=== PATIENT | male | born 1990 | race Caucasian/White ===

== ENCOUNTER 2016-12-03 03:03 | Emergency (ER) | payer BC, OTHER ==
[~2016-12-03] VITALS: Ht 175.3 cm; Wt 124.7 kg
--- NOTE | ~2016-12-03 | CT2 ---
[facility] A Service of [facility] RADIOLOGY TEXT RESULTS PATIENT: GABE YOON LOCATION: JOSE : [birth year] UNIT #: [id number] AGE: [address]: Keshawn Cantu MD SEX: M ORDER DR: [id number] [facility]. [place], [place] [address] [id number] MR#: [id number] Acc #: [id number] NAME: GABE YOON. : 1990 SEX: M STUDY DATE/TIME: 12/03/2016 7:50 UNIT: JOSE ROOM: STUDY DESCRIPTION: CT Abd and Pelv W Cont Attending Physician: Keshawn Cantu M.D. Ordering Physician: Herber Mercedes Aprn Primary Care Physician: Primary Care Physician No MEDICAL IMAGING REPORT This report is preliminary unless electronic signature is present EXAMINATION CT abdomen and pelvis with contrast DATE: 12/03/2016 HISTORY Right lower quadrant abdominal pain, vomiting and diarrhea since 12/02/2016 at 10:00. COMPARISON None. PROCEDURE 5 mm axial images from the lung bases through the lesser trochanters after intravenous contrast administration. Enteric contrast was not administered. Sagittal and coronal reformatted images were obtained. The CT exam was performed with one or more of the following radiation dose reduction techniques: automatic exposure control, adjustment of mA and/or kV according to patient size, and iterative reconstruction. Abdomen findings: The lung bases are clear. Liver is diffusely steatotic. The gallbladder, spleen, pancreas, adrenals and kidneys are normal. The appendix is normal. Limited evaluation of bowel due to lack of enteric contrast but no focal bowel inflammation is seen. Pelvis findings: Urinary bladder, prostate and rectum are normal. No pelvic adenopathy or free fluid is identified. No acute or suspicious osseous abnormalities. IMPRESSION [facility] A Service of [facility] RADIOLOGY TEXT RESULTS PATIENT: GABE YOON LOCATION: JOSE : [birth year] UNIT #: [id number] AGE: [address]: Keshawn Cantu MD SEX: M ORDER DR: 1. No acute findings in the abdomen and pelvis. 2. The appendix is normal. 3. Hepatic steatosis. Dictated by... Aga Brizuela M.D. THIS IS AN ELECTRONICALLY VERIFIED REPORT Aga Brizuela M.D. at 12/05/2016 8:49 AM [facility]/keri TD: 12/03/2016 12:53 JOB #: [id number] MEDICAL IMAGING REPORT Page 1 of 1 COPY
[~2016-12-03 03:03] MED LIST: BACTRIM DS TABL1 TA1 PO; FLEXERIL10 MG PO; NO MEDICATIONS; PHENERGAN25 MG PO; ULTRAM PO; VOLTAREN75 MG PO; ZANTAC150 MG PO
[2016-12-03 04:31] LABS: URINE SOURCE CLEAN CATCH
[2016-12-03 04:52] LABS: URINE APPEARANCE TURBID; URINE BILIRUBIN NEG (NEG); URINE BLOOD TRACE (NEG); URINE COLOR DK YELLOW; URINE GLUCOSE NEG (NEG); URINE KETONE NEG (NEG); URINE LEUKOCYTE ESTERASE NEG (NEG); URINE NITRATE NEG (NEG); URINE PROTEIN NEG (NEG); URINE SPECIFIC GRAVITY 1.034 (1.003-1.035); URINE UROBILINOGEN 0.2 MG/DL (NEG)
[2016-12-03 04:58] LABS: URINE BACTERIA AUWI NEG (NEGATIVE); URINE SQUAMOUS EPITHELIAL CELL NONE SEEN /[HPF]; UWBCS1 AUWI 0-2 (0-5)
[2016-12-03 05:01] LABS: CULTURE INDICATED? NO
[2016-12-03 05:52] LABS: BASOPHIL% 0.2 % (0-2.5); EOSINOPHIL% 0.1 % (0.0-7.0); HEMATOCRIT 50.2 % (38.0-50.0); HEMOGLOBIN 17.2 gm/dL (13.0-16.0); LYMPHOCYTE# 1.7 X10e3 (1.0-3.5); LYMPHOCYTE% 11.1 % (17.0-45.0); MEAN CELL VOLUME 90.5 FL (83-96); MEAN CORPUSCULAR HGB CONC 34.3 g/dL (30-36); MEAN PLATELET VOLUME 8.8 FL (6.5-11.5); MONOCYTE# 0.5 X10e3 (0-1.0); MONOCYTE% 3.6 % (3.0-12.0); NEUTROPHIL# 12.9 X10e3 (1.5-7.1); PLATELET COUNT 245 X10e3 (140-420); RED BLOOD COUNT 5.55 X10e (3.90-5.60); RED CELL DISTRIBUTION WIDTH 12.9 % (11.0-15.5); WHITE BLOOD COUNT 15.2 X10e3 (4.0-10.5)
[2016-12-03 05:54] LABS: DIFF IND YES
[2016-12-03 06:20] LABS: PLATELET ESTIMATE NORMAL (NORMAL)
[2016-12-03 06:21] LABS: ALBUMIN SERUM 4.5 g/dL (3.5-5.0); BILIRUBIN, DIRECT 0.1 mg/dL (0.0-0.2); BILIRUBIN,INDIRECT 0.5 mg/dL (0.0-0.9); BILIRUBIN,TOTAL 0.6 mg/dL (0.2-2.0); BUN/CREATININE RATIO 14.44; CREATININE SERUM 0.9 mg/dL (0.6-1.4); GLOM FILT RATE Estimated 115.8 mL/min (>60); POTASSIUM 3.9 mmol/L (3.5-5.1); PROTEIN TOTAL SERUM 7.8 g/dL (6.0-8.3); RBC NORMAL YES
== END 2016-12-03 10:07 | disposition home or self-care (01) ==
LOC: CED 03:03
DX: R10.31 Right lower quadrant pain (principal); R11.2 Nausea with vomiting, unspecified; R19.7 Diarrhea, unspecified; R68.83 Chills (without fever); Z88.5 Allergy status to narcotic agent
CPT/HCPCS: 36415; 74177; 80048; 80076; 81003; 82150; 83690; 85025; 96361; 96374; 96375; 99284; J2270; J2405; Q9967